=== PATIENT | female | born 1985 | race African-American/Black ===

== ENCOUNTER 2018-11-02 17:53 | Emergency (ER) | payer OTHER ==
--- NOTE | 2018-11-02 18:30 | PDOC ---
Rapid Medical Evaluation Time Seen by Provider: 11/02/18 18:26 Medical Evaluation: 11/02/18 18:26 I have performed a brief in-person evaluation of this patient. The patient presents with a chief complaint of: pain to right wrist. S/p fall one week ago, states fell today and used right hand to break fall. Complaining of pain in right wrist and right 5th digit Pertinent physical exam findings: Nad even and unlabored breathing both hands with no swelling, FROM I have ordered the following: urine preg, xray The patient will proceed to the ED for further evaluation.
[2018-11-02 18:38] VITALS: BP 112/74; PULSE 82; TEMP 98.6; BMI 27.4
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
--- NOTE | 2018-11-02 20:38 | PDOC ---
History of Present Illness - General Chief Complaint: Injury Stated Complaint: FALL RIGHT AND LEFT HAND Time Seen by Provider: 11/02/18 18:26 - History of Present Illness Initial Comments: 11/02/18 20:37 33-year-old female without comorbidities presents for evaluation of right fifth finger pain after fall one week ago and then again today. She states she slipped on black ice last week and then had a fall today without any clear reason. She points to the fifth digit of the right hand as the area of discomfort in the area of the PIPJ. Past History - Past Medical History Allergies/Adverse Reactions: Allergies Allergy/AdvReac Type Severity Reaction Status Date / Time No Known Allergies Allergy Verified 11/02/18 18:27 Home Medications: Ambulatory Orders Cyclobenzaprine HCl [Flexeril 10 mg] 10 mg PO HS PRN #10 tablet 11/02/18 Ibuprofen [Motrin -] 600 mg PO TID #30 tablet 11/02/18 COPD: No - Immunization History Immunization Up to Date: Yes - Suicide/Smoking/Psychosocial Hx Smoking History: Never smoked Information on smoking cessation initiated: No Hx Alcohol Use: No Drug/Substance Use Hx: No Review of Systems - Review of Systems Musculoskeletal: Yes: Joint Pain *Physical Exam - Vital Signs Last Vital Signs Temp Pulse Resp BP Pulse Ox 98.6 F 82 17 112/74 100 11/02/18 18:27 11/02/18 18:27 11/02/18 18:27 11/02/18 18:27 11/02/18 18:27 - Physical Exam Comments: 11/02/18 20:38 Right fifth finger skin color and temperature are normal range of motion is full with pain at terminal flexion of the DIPJ and PIPJ. There is diffuse tenderness without any specific areas. FDS and FDP work independently. She is neurovascularly intact without instability. 11/02/18 21:22 Lateral ear canals and tympanic membrane are normal. Patient requested an ear exam Moderate Sedation - Procedure Monitoring Vital Signs: Procedure Monitoring Vital Signs Temperature 98.6 F 11/02/18 18:27 Pulse Rate 82 11/02/18 18:27 Respiratory Rate 17 11/02/18 18:27 Blood Pressure 112/74 11/02/18 18:27 O2 Sat by Pulse Oximetry (%) 100 11/02/18 18:27 Medical Decision Making - Medical Decision Making 11/02/18 20:38 I will refer her to neurology for the for which occurred today. She did have mechanical fall last week however she is unsure why she fell today. 11/02/18 21:22 No fracture on radiograph today I will have her follow-up with hand surgery she may melania tape and do gentle range of motion to prevent stiffness and follow-up with neurology as well for her fall for no reason *DC/Admit/Observation/Transfer Diagnosis at time of Disposition: (Ruled Out): Cervical strain, Lumbar strain - Discharge Dispostion Disposition: HOME Condition at time of disposition: Stable - Prescriptions Prescriptions: Cyclobenzaprine HCl [Flexeril 10 mg] 10 mg PO HS PRN #10 tablet PRN Reason: Muscle Spasms Ibuprofen [Motrin -] 600 mg PO TID #30 tablet - Referrals Referrals: Zeyad Larson MD [Staff Physician] - Reno Piper MD [Staff Physician] - - Patient Instructions Printed Discharge Instructions: How to Prevent Falls, Finger Sprain, DI for Finger Sprain Additional Instructions: Return to the emergency room for worsening symptoms. Please follow-up with neurology for evaluation of your falls and hand surgery for evaluation of your finger sprain. Keep the fingers melania taped for now until evaluated by hand surgery he may remove the tape for hygiene gentle range of motion. Return to the emergency room for worsening symptoms follow-up with hand surgery neurology within the next 1-2 days. - Post Discharge Activity
== END 2018-11-02 21:37 | disposition home or self-care (01) ==
LOC: JERFT 17:53
DX: S69.81XA Other specified injuries of right wrist, hand and finger(s), initial encounter (principal); W00.2XXA Other fall from one level to another due to ice and snow, initial encounter; Y93.89 Activity, other specified; Y92.89 Other specified places as the place of occurrence of the external cause; Y99.8 Other external cause status
CPT/HCPCS: 73110-TC-RT-FY; 73130-TC-RT-FY; 84703; 99281-25